=== PATIENT | male | born 1950 | race Caucasian/White ===

== ENCOUNTER 2022-06-27 07:03 | Day surgery (SDC) | payer OTHER ==
--- NOTE | 2022-06-26 19:03 | EKG ---
Test Date: 2022-06-25 Test Time: 14:25:17 [place] [facility]: MICHEAL MEASUREMENT RESULTS: Intervals: Rate: 83 NH: 160 QRSD: 94 QT: 392 QTc: 460 [place]: P: 43 NH: 160 QRS: 58 T: 44 INTERPRETIVE STATEMENTS: Normal sinus rhythm Normal ECG No previous ECG available for comparison Electronically Signed On 06-26-22 19:00:37 [employer]IT[employer] SUPERINTENDENT by Trent Agosto
[2022-06-27] MEDS ORDERED: CEFAZOLIN SODIUM 2 GM/VIAL ONE (07:19)
[2022-06-27] MEDS ORDERED: Ringers Lactate 1,000 ML IV ONE (07:19)
[2022-06-27] MEDS ORDERED: MIDAZOLAM HCL 2 MG/2 ML INJ ONE (08:16)
[2022-06-27] MEDS ORDERED: ONDANSETRON 4 MG/2 ML VIAL ONE (08:16)
[2022-06-27] MEDS ORDERED: propofoL 200 MG/20 ML VIAL IV ONE (08:16)
[2022-06-27] MEDS ORDERED: LIDOCAINE 2% MPF 5 ML VIAL ONE (08:16)
[2022-06-27] MEDS ORDERED: FENTANYL CITR 100 MCG/2 ML ONE (08:16)
[2022-06-27] MEDS ORDERED: EPHEDRINE SULF 50 MG/ML VIAL ONE (08:36)
--- NOTE | 2022-06-27 09:01 | P.OP ---
Preoperative diagnosis: 2 Cysts of Back - upper and RIGHT upper Postoperative diagnosis: 2 Cysts of Back - upper and RIGHT upper Primary procedure: Wide Excision of 2 Cysts of Back - upper and RIGHT upper Anesthesia: GETA + Local Estimated blood loss: <5cc Specimen: 2 Cysts of Back - upper and RIGHT upper Findings: consistent with ruputred inflammed sebaceous cysts Complications: None Transferred to: Recovery Room Condition: Good
[2022-06-27] MEDS ORDERED: KETOROLAC 30 MG/ML INJ ONE (09:07)
[2022-06-27 09:53] VITALS: TEMP 97
[2022-06-27 10:13] VITALS: BP 107/65; O2SAT 98
--- NOTE | 2022-06-27 18:21 | OP ---
Date of Procedure: 06/27/2022 Surgeon: eMdardo Silva MD, Preoperative Diagnosis: Two cysts of the back, 1 in the upper central position and 1 in the right up per back position. Postoperative Diagnosis: Two cysts of the back, 1 in the upper central position and 1 in the right u pper back position. Procedure Performed: Wide local excision of above stated back cysts. Anesthesia: General endotracheal plus local with 0.25% Marcaine. Estimated Blood Loss: Less 5 cc. Specimen: Two cysts of the back, 1 upper central and 1 right upper. Findings: Consistent with ruptured inflamed sebaceous cyst. Complications: None. The patient was transferred to recovery room in good condition. Procedure In Detail: After informed consent was obtained, patient was brought to the operating room, and prepped and draped in the usual sterile fashion. After adequate anesthesia was achieved, I plac ed additional anesthesia in the form of 0.25% Marcaine circumferentially around the right upper back cyst. Initially I made an elliptical incision around the area where apparent drainage had been in past down to subcutaneous tissues using a 15 blade and ultimately used electrocautery to dissect ci rcumferentially around the cystic structure, which was then removed and ligated and sent off for path ologic examination. It was approximately 2.5 cm in size down to the fascia overlying the muscle incl uding the subcutaneous fat. It did not enter the fascia. The area was copiously irrigated. Hemosta sis was achieved with electrocautery. At this point, the wound was then reapproximated using interru pted 2-0 nylon sutures and sterile dressing placed over top. I then turned my attention to the centr al back cyst, which was significantly larger, approximately 4 cm to 5 cm in size. I made an addition al elliptical incision down around an area of obvious discharge, which was consistent with an epiderm al/sebaceous cyst. The same elliptical type incision was taken down for approximately 4.5 to 5 cm in length down to subcutaneous tissues with a 15 blade. I then also used electrocautery to circumferen tially dissect out this tissue plane including the sebaceous cyst and it was sent off for pathologic examination. The area was copiously irrigated. The cavity also extended down to the fascia overlyin g the muscle, but did not involve the fascia. The adipose tissue was taken en bloc in this area as i t was involved. Hemostasis was easily achieved with electrocautery after the area was copiously irri gated. The skin was then reapproximated in a similar fashion using 2-0 nylon suture and a wick was p laced in the central portion to allow for drainage and a compressive dressing was placed over the top . The patient tolerated the procedure without evidence of any complication and transferred to PACU i n good condition. All counts were correct at the end of the case. ESME/BRISSA Voice ID: [id number] Report ID: [id number]
== END 2022-06-27 10:50 | disposition home or self-care (01) ==
LOC: OR 07:03
PROVIDERS: ATTEND Surgery
PROC: 0JB70ZZ Excision of Back Subcutaneous Tissue and Fascia, Open Approach (ICD-10-PCS; principal; 2022-06-27 08:00)
DX: L72.0 Epidermal cyst (principal); I10 Essential (primary) hypertension
CPT/HCPCS: 93005; 88304; 11403; 11406; J2704; J2001; J2250; J3010; J7120; J2405